=== PATIENT | female | born 1975 | race Caucasian/White ===

== ENCOUNTER 2022-06-26 10:08 | Outpatient (CLI) | payer OTHER | END 2022-06-26 10:09 | disposition home or self-care (01) | LOC: CSHMAMMO 10:08 | PROVIDERS: ATTEND Family Medicine | DX: Z12.31 Encounter for screening mammogram for malignant neoplasm of breast (principal) | CPT/HCPCS: 77063; 77067 ==

== ENCOUNTER 2023-11-01 09:53 | Outpatient (CLI) | payer OTHER | END 2023-11-01 09:54 | disposition home or self-care (01) | LOC: CSHMAMMO 09:53 | PROVIDERS: ATTEND Family Medicine | DX: Z12.31 Encounter for screening mammogram for malignant neoplasm of breast (principal) | CPT/HCPCS: 77063; 77067 ==